=== PATIENT | female | born 1970 | race Native Hawaiian/Other Pacific Islander ===

== ENCOUNTER 2017-02-27 12:33 | Emergency (ER) | payer OTHER ==
[~2017-02-27] VITALS: Ht 177.8 cm; Wt 100.7 kg
[~2017-02-27 12:33] MED LIST: DILT30TA24 PO; PRILOSEC OTC20 MG OR
[2017-02-27 15:06] VITALS: BP 160/90; TEMP 97.8
== END 2017-02-27 15:06 | disposition home or self-care (01) ==
LOC: ED 12:33
DX: N20.1 Calculus of ureter (principal)
CPT/HCPCS: 81000; 96365; 96375; 96376; 99284; J1885; J2405

== ENCOUNTER 2019-02-04 13:44 | Emergency (ER) | payer BC ==
[~2019-02-04] VITALS: Ht 175.3 cm; Wt 97.5 kg
[2019-02-04] MEDS ORDERED: ASA LOW DOSE81 MG PO (14:19)
[2019-02-04] MEDS ORDERED: LISI10TA11 PO (14:25)
[2019-02-04 14:32] LABS: PLATELET COUNT 321 K/uL (152-353)
[2019-02-04 14:39] LABS: POTASSIUM 4.1 mmol/L (3.6-5.2); SODIUM 139 mmol/L (136-145)
[2019-02-04 15:54] VITALS: BP 133/80; TEMP 97.9
== END 2019-02-04 15:54 | disposition home or self-care (01) ==
LOC: ED 13:44
PROVIDERS: Family Medicine
DX: R07.89 Other chest pain (principal); I10 Essential (primary) hypertension; F41.9 Anxiety disorder, unspecified; K22.4 Dyskinesia of esophagus; K21.9 Gastro-esophageal reflux disease without esophagitis
CPT/HCPCS: 36415; 80053; 82550; 82553; 83880; 84484; 85027; 85379; 85610; 85730; 93005; 99284